=== PATIENT | male | born 1980 | race Caucasian/White ===

== ENCOUNTER 2020-07-22 12:39 | Emergency (ER) | payer SELFPAY ==
--- NOTE | ~2020-07-22 | CT_ITS ---
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 TECHNIQUE: Spiral CT of the neck was performed following intravenous injection of 75 mL Omnipaque 350 . Axial, coronal and sagittal images were reviewed. The dose-length product (DLP) for this examinat ion was 529.91 mGy-cm. The exposure was tailored according to patient size (auto mA exposure control ), and iterative reconstruction (ASIR) was used as additional dose reduction technique. There is no prior study for comparison. FINDINGS: The right tonsil has heterogeneously low central density and is significantly enlarged. No definite rim enhancement, however appearance is consistent with early developing tonsillar abscess, u ncertain whether or not there is drainable component. The left tonsil also appears enlarged, swollen, but significantly smaller in size. This is causing some narrowing of the oropharynx. No retropharyng eal component, fat planes are preserved. There are reactive bilateral internal jugular chain lymph no gwen, probably largest on the right measuring 2.2 x 1.4 cm. Epiglottis normal in thickness. The thyroid gland is unremarkable. The submandibular and parotid glands are symmetric. The superi or mediastinum is unremarkable. Parapharyngeal and pre-glottic fat planes are preserved. The opa cified vasculature is patent. The orbits are unremarkable. Mild right maxillary sinus mucoperiost eal thickening. Mastoid air cells are well aerated. Lung apices are clear. Mild cervical spondylosi s. IMPRESSION: 1. Significantly enlarged centrally low density right tonsil, likely phlegmon/early developing absce ss without discrete rim-enhancing wall at this point. Uncertain whether or not there is drainable flu id. 2. Reactive internal jugular chain lymphadenopathy. Reviewed, dictated and finalized at location [facility] IMPRESSION: 1. Significantly enlarged centrally low density right tonsil, likely phlegmon/ early developing abscess without discrete rim-enhancing wall at this point. Unc ertain whether or not there is drainable fluid. 2. Reactive internal jugular chain lymphadenopathy.
[2020-07-22 12:45] VITALS: BP 142/92; PULSE 77; RESP 16; TEMP 36.3; O2SAT 99
--- NOTE | 2020-07-22 12:58 | ED.GENADULT ---
HPI - General Adult General Chief complaint: Upper Respiratory Infection Stated complaint: sore throat Time Seen by Provider: 07/22/20 12:44 Source: patient History of Present Illness HPI narrative: 40-year-old female presents to emergency department for sore throat for the past 3 days. Patient states he has never felt like this in the past before. He took Tylenol to help with the pain. Patient states that he is having some difficulty breathing at night recently. No runny or congested nose. No cough. No fever or chills. No chest pain or shortness of breath. Related Data Allergies Allergy/AdvReac Type Severity Reaction Status Date / Time No Known Allergies Allergy Verified 07/22/20 14:33 Review of Systems Review of Systems: Narrative: CONSTITUTIONAL: Denies fever, chills, or sweats. EYES: Denies visual changes, redness, or discharge. ENT: Denies rhinorrhea, congestion, or otalgia. Reports sore throat CARDIOVASCULAR: Denies chest pain, palpitations, or edema. RESPIRATORY: Denies cough or dyspnea. GASTROINTESTINAL: Denies abdominal pain, nausea, vomiting, or diarrhea. GENITOURINARY: Denies dysuria or hematuria. SKIN: Denies rash or itching. MUSCULOSKELETAL: Denies back pain, joint pain, or myalgia. NEUROLOGIC: Denies headache, numbness, dizziness, or weakness. PSYCHIATRIC: Denies anxiety or depression. All systems reviewed & are unremarkable except as noted in HPI and below (ROS) Exam Narrative: Exam Narrative: GENERAL: Well-appearing, well-nourished, and in no acute distress. HEAD: Normocephalic, atraumatic. EYES: PERRLA and EOMI. ENT: Nares clear, no rhinorrhea or epistaxis. Mucous membranes moist. Right-sided peritonsillar erythema and swelling NECK: Supple. CHEST: Clear to auscultation. No respiratory distress. HEART: Regular rate and rhythm. No murmur heard. Normal peripheral pulses. ABDOMEN: Soft, nontender, nondistended, normal active bowel sounds. EXTREMITIES: Normal range of motion. No edema. SKIN: Warm, dry, no rash. NEURO: No focal deficits. Alert and oriented x3. PSYCH: Normal mood and affect. Course Reevaluation(s) Reevaluation #1: 1545 - re-evaluated pt, pain significantly improved. Patient tolerating oral secretions, no acute distress. Consultations Consultation #1: 1510 - discussed case with Dr. Atwood, will d/c with augmentin, and follow up in clinic tomorrow Vital Signs Vital signs: Vital Signs Temperature 36.3 C L 07/22/20 12:45 Pulse Rate 77 07/22/20 12:45 Respiratory Rate 16 07/22/20 12:45 Blood Pressure 142/92 H 07/22/20 12:45 Pulse Oximetry 99 07/22/20 12:45 Temperature 37.4 C 07/22/20 16:20 Pulse Rate 63 07/22/20 16:20 Respiratory Rate 16 07/22/20 16:20 Blood Pressure 125/88 07/22/20 16:20 Pulse Oximetry 97 07/22/20 16:20 Medical Decision Making Medical Records Medical records reviewed: Yes I reviewed the patient's medical records. Vital Signs Vital Signs: Vital Signs Temperature 36.3 C L 07/22/20 12:45 Pulse Rate 77 07/22/20 12:45 Respiratory Rate 16 07/22/20 12:45 Blood Pressure 142/92 H 07/22/20 12:45 Pulse Oximetry 99 07/22/20 12:45 Temperature 37.4 C 07/22/20 16:20 Pulse Rate 63 07/22/20 16:20 Respiratory Rate 16 07/22/20 16:20 Blood Pressure 125/88 07/22/20 16:20 Pulse Oximetry 97 07/22/20 16:20 Lab Data Lab results reviewed: Yes I reviewed the patient's lab results. Result diagrams: 07/22/20 13:33 07/22/20 13:33 Labs: Lab Results 07/22/20 07/22/20 Range/Units 13:33 13:33 WBC 19.9 H (4.5-10.0) K/mm3 RBC 5.01 (4.6-6.20) M/mm3 Hgb 16.7 (14.0-18.0) g/dL Hct 48.6 (42.0-52.0) % MCV 97.0 (80-100) fl MCH 33.3 (26-34) pg MCHC 34.4 (32-36) g/dl RDW 12.1 (11.5-14.5) % Plt Count 206 (150-375) k/mm3 MPV 11.5 H (7.4-10.4) fl Immature Gran % (Auto) 0.5 (0-0.5) % Neut % (Auto) 81.1 H (45.5-73.1) % Lymph % (Auto) 10.2 L (18.
[2020-07-22] MEDS: SODIUM CHLORIDE 0.9% IV 1,000 ML 999 ML IV CONT (13:27)
[2020-07-22] MEDS: KETOROLAC 30 MG/ML VIAL (*BKC) IV PUSH (13:27)
[2020-07-22] MEDS: DEXAMETHASONE SOD PHOS INJ 4 MG/ML VIAL 10 MG IV PUSH (13:29)
[2020-07-22 13:40] LABS: Basophils Absolute Auto 0.1 K/mm3 (0.0-0.1); Basophils Percent Auto 0.3 % (0.2-1.2); Eosinophils Absolute Auto 0.1 K/mm3 (0-0.3); Eosinophils Percent Auto 0.4 % (0-4.4); Hematocrit 48.6 % (42.0-52.0); Hemoglobin 16.7 g/dL (14.0-18.0); Immature Granulocyte Percent A 0.5 % (0-0.5); Lymphocytes Absolute Auto 2.04 K/mm3 (0.9-3.2); Lymphocytes Percent Auto 10.2 % (18.3-44.2); Mean Corpuscular HGB Conc 34.4 g/dl (32-36); Mean Corpuscular Hemoglobin 33.3 pg (26-34); Mean Platelet Volume 11.5 fl (7.4-10.4); Monocytes Absolute Auto 1.5 K/mm3 (0.1-0.6); Monocytes Percent Auto 7.5 % (2.6-8.5); Neutrophils Absolute Auto 16.1 K/mm3 (1.3-6.7); Neutrophils Percent Auto 81.1 % (45.5-73.1); Platelet Count Result 206 k/mm3 (150-375); Red Blood Count 5.01 M/mm3 (4.6-6.20); Red Cell Distribution Width 12.1 % (11.5-14.5); White Blood Count 19.9 K/mm3 (4.5-10.0)
[2020-07-22 13:55] LABS: Alanine Aminotransferase 21 U/L (4-50); Albumin Level 4.8 g/dL (3.5-5.1); Alkaline Phosphatase 125 U/L (38-126); Anion Gap 11 mmol/L (8-16); Aspartate Amino Transferase 22 U/L (17-59); Bilirubin,Total 0.9 mg/dL (0.2-1.3); Blood Urea Nitrogen 11 mg/dL (9-20); Calcium 10.2 mg/dL (8.4-10.2); Carbon Dioxide 28 mmol/L (22-30); Chloride 103 mmol/L (98-107); Estimated CRCL calculation 91 ml/min; Estimated Glomerular Filt Rate > 60; Glucose 116 mg/dL (75-110); Potassium 4.4 mmol/L (3.4-5.0); Sodium 142 mmol/L (137-145)
[2020-07-22] MEDS: AMPICILLIN SULB 3 GM/NS 100 ML 3 GM/100 ML VIAL IVPB (14:48)
[2020-07-22 16:20] VITALS: BP 125/88; PULSE 63; RESP 16; TEMP 37.4; O2SAT 97
== END 2020-07-22 16:20 | disposition home or self-care (01) ==
PROVIDERS: Emergency Provider Emergency Medicine
DX: J03.90 Acute tonsillitis, unspecified (principal)
CPT/HCPCS: 36415; 70491; 80053; 85025; 87081; 87880; 96361; 96365; 96375; 99284; J0295; J1100; J1885; J7030; Q9967